=== PATIENT | male | born 1970 | race Caucasian/White ===

== ENCOUNTER 2016-12-10 13:36 | Emergency (ER) | payer OTHER ==
[~2016-12-10] VITALS: Ht 170.2 cm; Wt 99.8 kg
[~2016-12-10 13:36] MED LIST: ROBITUSSIN
[2016-12-10 13:56] VITALS: BP 121/78
--- NOTE | 2016-12-10 14:56 | NUR ---
45/M TO ED WITH C/O CHEST CONGESTION X2 DAYS WITH PRODUCTIVE COUGH. PT STATES HE HAS PAIN 5/10 IN CHEST. ALSO C/O SORE THROAT AND RUNNY NOSE. LUNGS CLEAR BILAT. HR EVEN AND REGULAR. AAOX4. VSS. NO SIGNS OF DISTRESS.
[2016-12-10 15:42] VITALS: BP 121/78
--- NOTE | 2016-12-10 15:43 | NUR ---
Patient discharged with v/s stable. Written and verbal after care instructions given and explained. Patient alert, oriented and verbalized understanding of instructions. Ambulatory with steady gait. All questions addressed prior to discharge. ID band removed. Patient advised to follow up with PMD. Rx of IBUPROFEN, PROMETHAZINE given. Patient educated on indication of medication including possible reaction and side effects. Opportunity to ask questions provided and answered.
== END 2016-12-10 15:43 | disposition home or self-care (01) ==
LOC: MED 13:36
DX: B34.9 Viral infection, unspecified (principal); J00 Acute nasopharyngitis [common cold]

== ENCOUNTER 2017-07-18 08:41 | Outpatient (CLI) | payer OTHER ==
[2017-07-18 09:46] LABS: BASOPHILS # (AUTO) 0.1 K/uL (0.00-0.22); EOSINOPHILS # (AUTO) 0.2 K/uL (0-0.4); EOSINOPHILS % (AUTO) 2.6 % (0.0-4.0); HEMATOCRIT 47.4 % (36-52); HEMOGLOBIN 15.4 g/dL (12.0-18.0); LYMPHOCYTES # (AUTO) 2.2 K/uL (2.0-11.5); LYMPHOCYTES % (AUTO) 30.2 % (20.5-51.1); MEAN CORPUSCULAR HEMOGLOBIN 29 pg (27-31); MEAN CORPUSCULAR HGB CONC 33 g/dL (33-37); MEAN CORPUSCULAR VOLUME 88 fL (80-94); MONOCYTES # (AUTO) 0.3 K/uL (0.8-1.0); MONOCYTES % (AUTO) 4.4 % (1.7-9.3); NEUTROPHILS # (AUTO) 4.5 K/uL (1.8-7.7); NEUTROPHILS % (AUTO) 61.8 % (42.2-75.2); PLATELET COUNT (AUTO) 276 K/uL (140-450); RED BLOOD CELL COUNT(AUTO) 5.37 MIL/uL (4.20-6.10); RED CELL DISTRIBUTION WIDTH 12.7 % (11.6-13.7); WHITE BLOOD COUNT (AUTO) 7.3 K/uL (4.8-10.8)
[2017-07-18 10:08] LABS: CHOL/HDL RATIO 4.6 (1-4.5)
[2017-07-18 10:15] LABS: ALBUMIN 3.9 g/dL (3.4-5.0); ANION GAP 7.3 (8-16); CARBON DIOXIDE 31.9 mmol/L (21-32); POTASSIUM 4.2 mmol/L (3.5-5.1); THYROID STIMULATING HORMONE 0.41 uIU/mL (0.34-3.74); TOTAL BILIRUBIN 1.2 mg/dL (0.0-1.0)
[2017-07-18 10:36] LABS: APPEARANCE,URINE HAZY (CLEAR); BILIRUBIN,URINE NEGATIVE (NEGATIVE); BLOOD, URINE NEGATIVE (NEGATIVE); COLOR,URINE ORANGE (YELLOW); LEUKOCYTE ESTERASE ,URINE NEGATIVE (NEGATIVE); NITRITE, URINE NEGATIVE (NEGATIVE); UGLUCOSE NEGATIVE (NEGATIVE)
== END 2017-07-18 20:41 | disposition home or self-care (01) ==
LOC: MRD 08:41
PROVIDERS: ATTEND Family Medicine Geriatric Medicine
DX: Z13.0 Encounter for screening for diseases of the blood and blood-forming organs and certain disorders involving the immune mechanism (principal); Z12.11 Encounter for screening for malignant neoplasm of colon; Z13.1 Encounter for screening for diabetes mellitus; Z13.228 Encounter for screening for other metabolic disorders; M77.31 Calcaneal spur, right foot; M25.512 Pain in left shoulder; M25.562 Pain in left knee; M25.572 Pain in left ankle and joints of left foot; M48.56XA Collapsed vertebra, not elsewhere classified, lumbar region, initial encounter for fracture; E78.5 Hyperlipidemia, unspecified
CPT/HCPCS: 36415; 72110; 73030; 73565; 73610; 73630; 80053; 81003; 83036; 84443; 85025; 87086

== ENCOUNTER 2018-01-09 11:14 | Emergency (ER) | payer OTHER ==
[~2018-01-09] VITALS: Ht 170.2 cm; Wt 99.3 kg
[2018-01-09 11:19] VITALS: BP 128/77
--- NOTE | 2018-01-09 11:21 | NUR ---
PT TAKEN TO BED 12.
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
[2018-01-09] MEDS ORDERED: KETOROLAC 60 MG/2 ML VIAL IM ONE (11:40)
[2018-01-09] MEDS ORDERED: HYDROcodone/APAP 5/325 MG 1 TAB TAB PO ONE (11:40)
[2018-01-09] MEDS ORDERED: DEXAMETHASONE 10 MG/ML VIAL IM ONE (11:40)
[2018-01-09 13:07] VITALS: BP 133/74
--- NOTE | 2018-01-09 13:08 | NUR ---
Patient discharged with v/s stable. Written and verbal after care instructions given and explained. Patient alert, oriented and verbalized understanding of instructions. Ambulatory with steady gait. All questions addressed prior to discharge. ID band removed. Patient advised to follow up with PMD. Rx of VOLATAREN given. Patient educated on indication of medication including possible reaction and side effects. Opportunity to ask questions provided and answered.
== END 2018-01-09 13:07 | disposition home or self-care (01) ==
LOC: MED 11:14
DX: S43.401A Unspecified sprain of right shoulder joint, initial encounter (principal); M75.01 Adhesive capsulitis of right shoulder; X58.XXXA Exposure to other specified factors, initial encounter; Y93.89 Activity, other specified; Y92.89 Other specified places as the place of occurrence of the external cause; Y99.8 Other external cause status
CPT/HCPCS: 73030; 96372; 99284; J1100; J1885

== ENCOUNTER 2018-02-04 13:49 | Emergency (ER) | payer OTHER ==
[~2018-02-04] VITALS: Ht 170.2 cm; Wt 82.6 kg
[2018-02-04 13:59] VITALS: BP 134/78
--- NOTE | 2018-02-04 14:08 | NUR ---
PT AMBULATED TO ER CHAIR C
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
[2018-02-04] MEDS ORDERED: IBUPROFEN 600 MG TAB PO ONE (14:15)
[2018-02-04 14:53] VITALS: BP 134/78
--- NOTE | 2018-02-04 14:53 | NUR ---
Patient discharged with v/s stable. Written and verbal after care instructions given and explained. Patient alert, oriented and verbalized understanding of instructions. Ambulatory with steady gait with crutches. All questions addressed prior to discharge. ID band removed. Patient advised to follow up with PMD. Rx of Ibuprofen given. Patient educated on indication of medication including possible reaction and side effects. Opportunity to ask questions provided and answered.
== END 2018-02-04 14:53 | disposition home or self-care (01) ==
LOC: MED 13:49
DX: S93.402A Sprain of unspecified ligament of left ankle, initial encounter (principal); Z79.899 Other long term (current) drug therapy; W19.XXXA Unspecified fall, initial encounter; Y93.89 Activity, other specified; Y92.89 Other specified places as the place of occurrence of the external cause; Y99.8 Other external cause status
CPT/HCPCS: 73610; 99284

== ENCOUNTER 2018-08-18 08:25 | Outpatient (CLI) | payer OTHER ==
[2018-08-18 08:55] LABS: BASOPHILS % (AUTO) 0.7 % (0.0-2.0); EOSINOPHILS # (AUTO) 0.1 K/uL (0-0.4); EOSINOPHILS % (AUTO) 1.4 % (0.0-4.0); HEMATOCRIT 44.7 % (36-52); LYMPHOCYTES # (AUTO) 1.9 K/uL (2.0-11.5); LYMPHOCYTES % (AUTO) 31.2 % (20.5-51.1); MEAN CORPUSCULAR HEMOGLOBIN 30 pg (27-31); MEAN CORPUSCULAR HGB CONC 34 g/dL (33-37); MEAN CORPUSCULAR VOLUME 88.1 fL (80-94); MONOCYTES # (AUTO) 0.3 K/uL (0.8-1.0); MONOCYTES % (AUTO) 4.8 % (1.7-9.3); NEUTROPHILS # (AUTO) 3.8 K/uL (1.8-7.7); NEUTROPHILS % (AUTO) 61.9 % (42.2-75.2); PLATELET COUNT (AUTO) 235 K/uL (140-450); RED BLOOD CELL COUNT(AUTO) 5.08 MIL/uL (4.20-6.10); RED CELL DISTRIBUTION WIDTH 13.6 % (11.6-13.7); WHITE BLOOD COUNT (AUTO) 6.2 K/uL (4.8-10.8)
[2018-08-18 09:09] LABS: APPEARANCE,URINE CLEAR (CLEAR); COLOR,URINE YELLOW (YELLOW)
[2018-08-18 09:10] LABS: BILIRUBIN,URINE NEGATIVE (NEGATIVE); BLOOD, URINE NEGATIVE (NEGATIVE); LEUKOCYTE ESTERASE ,URINE NEGATIVE (NEGATIVE); NITRITE, URINE NEGATIVE (NEGATIVE); RBC,URINE NONE SEEN /HPF (0-5); UGLUCOSE NEGATIVE (NEGATIVE); WBC,URINE 0-5 (RARE) /HPF (0-5)
[2018-08-18 09:41] LABS: ANION GAP 10.5 (8-16); CARBON DIOXIDE 26.5 mmol/L (21-32); CREATININE 0.9 mg/dL (0.7-1.3)
[2018-08-18 09:56] LABS: ALBUMIN 3.7 g/dL (3.4-5.0); CHOL/HDL RATIO 4.6 (1-4.5); FREE T4 (FREE THYROXINE) 0.8 ng/dL (0.76-1.46); THYROID STIMULATING HORMONE 0.79 uIU/mL (0.34-3.74); TOTAL BILIRUBIN 0.9 mg/dL (0.0-1.0)
== END 2018-08-18 21:22 | disposition home or self-care (01) ==
LOC: MLB 08:25
PROVIDERS: ATTEND Family Medicine Geriatric Medicine
DX: Z13.228 Encounter for screening for other metabolic disorders (principal); Z13.1 Encounter for screening for diabetes mellitus; Z12.5 Encounter for screening for malignant neoplasm of prostate; Z13.0 Encounter for screening for diseases of the blood and blood-forming organs and certain disorders involving the immune mechanism; E78.5 Hyperlipidemia, unspecified
CPT/HCPCS: 36415; 80053; 81001; 82306; 84154; 84439; 84443; 85025

== ENCOUNTER 2019-05-24 12:11 | Emergency (ER) | payer OTHER ==
[~2019-05-24] VITALS: Ht 172.7 cm; Wt 94.3 kg
[2019-05-24 12:17] VITALS: BP 102/66
--- NOTE | 2019-05-24 12:23 | NUR ---
Patient ambulated to bed 8 with family. RN evaluating patient at bedside.
--- NOTE | 2019-05-24 12:24 | NUR ---
Dr. Jensen evaluating patient at bedside.
[2019-05-24] MEDS ORDERED: IBUPROFEN 400 MG TAB PO ONE (12:30)
--- NOTE | 2019-05-24 12:31 | NUR ---
dental laboratory technology teacher at bedside.
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
[2019-05-24 12:56] VITALS: BP 102/66
--- NOTE | 2019-05-24 12:57 | NUR ---
Patient discharged with v/s stable. Written and verbal after care instructions given and explained. Patient alert, oriented and verbalized understanding of instructions. Ambulatory with steady gait. All questions addressed prior to discharge. ID band removed. Patient advised to follow up with PMD. Rx of Tramadol, Naprosyn, Cephalexin given. Patient educated on indication of medication including possible reaction and side effects. Opportunity to ask questions provided and answered.
== END 2019-05-24 12:57 | disposition home or self-care (01) ==
LOC: MED 12:11
DX: L03.012 Cellulitis of left finger (principal); Z79.899 Other long term (current) drug therapy
CPT/HCPCS: 29130; 73130; 99283; Q0092

== ENCOUNTER 2019-08-12 08:04 | Outpatient (CLI) | payer OTHER ==
[2019-08-12 08:44] LABS: BILIRUBIN,URINE NEGATIVE (NEGATIVE); BLOOD, URINE NEGATIVE (NEGATIVE); COLOR,URINE YELLOW (YELLOW); LEUKOCYTE ESTERASE ,URINE NEGATIVE (NEGATIVE); NITRITE, URINE NEGATIVE (NEGATIVE); UGLUCOSE NEGATIVE (NEGATIVE)
[2019-08-12 08:49] LABS: APPEARANCE,URINE SLIGHTLY HAZY (CLEAR); RBC,URINE 0 /HPF (0-5)
[2019-08-12 08:50] LABS: WBC,URINE 0-5 /HPF (0-5)
[2019-08-12 09:11] LABS: ALBUMIN 3.8 g/dL (3.4-5.0); ANION GAP 8.7 (8-16); CARBON DIOXIDE 32.1 mmol/L (21-32); CHOL/HDL RATIO 4.3 (1-4.5); CREATININE 0.9 mg/dL (0.7-1.3); FREE T4 (FREE THYROXINE) 0.82 ng/dL (0.76-1.46); POTASSIUM 3.8 mmol/L (3.5-5.1); THYROID STIMULATING HORMONE 1.08 uIU/mL (0.34-3.74); TOTAL BILIRUBIN 1.1 mg/dL (0.0-1.0)
[2019-08-12 10:30] LABS: BASOPHILS % (AUTO) 0.6 % (0.0-2.0); EOSINOPHILS # (AUTO) 0.1 K/uL (0-0.4); EOSINOPHILS % (AUTO) 1.1 % (0.0-4.0); HEMATOCRIT 46.1 % (36-52); HEMOGLOBIN 15.2 g/dL (12.0-18.0); LYMPHOCYTES # (AUTO) 1.5 K/uL (2.0-11.5); LYMPHOCYTES % (AUTO) 25.3 % (20.5-51.1); MEAN CORPUSCULAR HEMOGLOBIN 30 pg (27-31); MEAN CORPUSCULAR HGB CONC 33 g/dL (33-37); MEAN CORPUSCULAR VOLUME 90.7 fL (80-94); MONOCYTES # (AUTO) 0.3 K/uL (0.8-1.0); MONOCYTES % (AUTO) 4.4 % (1.7-9.3); NEUTROPHILS # (AUTO) 4.2 K/uL (1.8-7.7); NEUTROPHILS % (AUTO) 68.6 % (42.2-75.2); PLATELET COUNT (AUTO) 263 K/uL (140-450); RED BLOOD CELL COUNT(AUTO) 5.08 MIL/uL (4.20-6.10); RED CELL DISTRIBUTION WIDTH 13.9 % (11.6-13.7); WHITE BLOOD COUNT (AUTO) 6.1 K/uL (4.8-10.8)
== END 2019-08-12 22:03 | disposition home or self-care (01) ==
LOC: MLB 08:04
DX: Z12.5 Encounter for screening for malignant neoplasm of prostate (principal); Z13.1 Encounter for screening for diabetes mellitus; Z13.228 Encounter for screening for other metabolic disorders; Z13.0 Encounter for screening for diseases of the blood and blood-forming organs and certain disorders involving the immune mechanism; E78.5 Hyperlipidemia, unspecified; R79.89 Other specified abnormal findings of blood chemistry
CPT/HCPCS: 36415; 80053; 81001; 82306; 83036; 84154; 84439; 84443; 85025

== ENCOUNTER 2019-11-12 08:16 | Outpatient (CLI) | payer OTHER ==
[2019-11-12 09:28] LABS: BASOPHILS % (AUTO) 0.7 % (0.0-2.0); EOSINOPHILS # (AUTO) 0.1 K/uL (0-0.4); EOSINOPHILS % (AUTO) 1.5 % (0.0-4.0); HEMOGLOBIN 15.2 g/dL (12.0-18.0); LYMPHOCYTES # (AUTO) 1.9 K/uL (2.0-11.5); LYMPHOCYTES % (AUTO) 30.5 % (20.5-51.1); MEAN CORPUSCULAR HEMOGLOBIN 30 pg (27-31); MEAN CORPUSCULAR HGB CONC 34 g/dL (33-37); MEAN CORPUSCULAR VOLUME 89.3 fL (80-94); MONOCYTES # (AUTO) 0.3 K/uL (0.8-1.0); MONOCYTES % (AUTO) 5.1 % (1.7-9.3); NEUTROPHILS # (AUTO) 3.8 K/uL (1.8-7.7); NEUTROPHILS % (AUTO) 62.2 % (42.2-75.2); PLATELET COUNT (AUTO) 244 K/uL (140-450); RED BLOOD CELL COUNT(AUTO) 5.04 MIL/uL (4.20-6.10); RED CELL DISTRIBUTION WIDTH 13.5 % (11.6-13.7); WHITE BLOOD COUNT (AUTO) 6.1 K/uL (4.8-10.8)
[2019-11-13 06:49] LABS: PROSTATE SPEC AG TOTAL 3.2 ng/mL (0.0-4.0)
== END 2019-11-12 21:19 | disposition home or self-care (01) ==
LOC: MLB 08:16
DX: N50.3 Cyst of epididymis (principal); R53.83 Other fatigue
CPT/HCPCS: 36415; 76870; 84153; 84402; 84403; 85025; Q0092

== ENCOUNTER 2019-11-30 12:32 | Emergency (ER) | payer OTHER ==
[~2019-11-30] VITALS: Ht 167.6 cm; Wt 97.5 kg
[2019-11-30 13:17] VITALS: BP 125/78
--- NOTE | 2019-11-30 13:20 | NUR ---
WAIT AT LOBBY.
--- NOTE | 2019-11-30 13:45 | NUR ---
Patient ambulated to chair C. RN evaluating patient.
[2019-11-30] MEDS ORDERED: KETOROLAC 60 MG/2 ML VIAL IM ONE (13:55)
--- NOTE | 2019-11-30 14:37 | NUR ---
The patient was evaluated, treated and discharged by ANDREA Nicholas. No nursing care was rendered. The patient was discharged by ANDREA Nicholas.
== END 2019-11-30 14:37 | disposition home or self-care (01) ==
LOC: MED 12:32
DX: G89.29 Other chronic pain (principal); M25.511 Pain in right shoulder; M25.512 Pain in left shoulder
CPT/HCPCS: 96372; 99283; J1885

== ENCOUNTER 2019-12-04 10:58 | Outpatient (CLI) | payer OTHER | END 2019-12-04 20:52 | disposition home or self-care (01) | LOC: MLB 10:58 | PROVIDERS: ATTEND Urology | DX: N39.0 Urinary tract infection, site not specified (principal) | CPT/HCPCS: 87086 ==

== ENCOUNTER 2020-03-18 07:43 | Outpatient (CLI) | payer OTHER ==
[2020-03-18 08:46] LABS: CHOL/HDL RATIO 5.2 (1-4.5)
== END 2020-03-18 23:05 | disposition home or self-care (01) ==
LOC: MLB 07:43
DX: K80.20 Calculus of gallbladder without cholecystitis without obstruction (principal); K76.0 Fatty (change of) liver, not elsewhere classified; E78.5 Hyperlipidemia, unspecified; R79.89 Other specified abnormal findings of blood chemistry
CPT/HCPCS: 36415; 76700; 80061; 82306; Q0092

== ENCOUNTER 2020-03-28 12:34 | Outpatient (CLI) | payer OTHER | END 2020-03-28 20:41 | disposition home or self-care (01) | LOC: MRD 12:34 | DX: M25.512 Pain in left shoulder (principal) | CPT/HCPCS: 73030 ==

== ENCOUNTER 2020-06-20 08:42 | Outpatient (CLI) | payer OTHER ==
[2020-06-20 09:17] LABS: BASOPHILS % (AUTO) 0.6 % (0.0-2.0); EOSINOPHILS # (AUTO) 0.1 K/uL (0-0.4); EOSINOPHILS % (AUTO) 2.1 % (0.0-4.0); HEMATOCRIT 44.6 % (36-52); HEMOGLOBIN 15.2 g/dL (12.0-18.0); LYMPHOCYTES # (AUTO) 1.9 K/uL (2.0-11.5); LYMPHOCYTES % (AUTO) 33.7 % (20.5-51.1); MEAN CORPUSCULAR HEMOGLOBIN 31 pg (27-31); MEAN CORPUSCULAR HGB CONC 34 g/dL (33-37); MEAN CORPUSCULAR VOLUME 89.4 fL (80-94); MONOCYTES # (AUTO) 0.3 K/uL (0.8-1.0); MONOCYTES % (AUTO) 5.2 % (1.7-9.3); NEUTROPHILS # (AUTO) 3.4 K/uL (1.8-7.7); NEUTROPHILS % (AUTO) 58.4 % (42.2-75.2); PLATELET COUNT (AUTO) 234 K/uL (140-450); RED BLOOD CELL COUNT(AUTO) 4.99 MIL/uL (4.20-6.10); RED CELL DISTRIBUTION WIDTH 13.4 % (11.6-13.7); WHITE BLOOD COUNT (AUTO) 5.8 K/uL (4.8-10.8)
[2020-06-20 09:23] LABS: APPEARANCE,URINE CLEAR (CLEAR); BILIRUBIN,URINE NEGATIVE (NEGATIVE); BLOOD, URINE NEGATIVE (NEGATIVE); COLOR,URINE YELLOW (YELLOW); LEUKOCYTE ESTERASE ,URINE NEGATIVE (NEGATIVE); NITRITE, URINE NEGATIVE (NEGATIVE); UGLUCOSE NEGATIVE (NEGATIVE)
[2020-06-20 09:34] LABS: ALBUMIN 3.9 g/dL (3.4-5.0); ANION GAP 11.8 (8-16); CARBON DIOXIDE 26.1 mmol/L (21-32); CREATININE 0.9 mg/dL (0.6-1.3); POTASSIUM 3.9 mmol/L (3.5-5.1); TOTAL BILIRUBIN 0.7 mg/dL (0.0-1.0)
[2020-06-20 12:39] LABS: PROTHROMBIN TIME 9.5 secs (10.8-13.4)
== END 2020-06-20 19:29 | disposition home or self-care (01) ==
LOC: MLB 08:42
DX: Z01.818 Encounter for other preprocedural examination (principal); Z01.812 Encounter for preprocedural laboratory examination
CPT/HCPCS: 36415; 71046; 80053; 81003; 85025; 85610; 85651; 85730

== ENCOUNTER 2020-09-02 10:33 | Emergency (ER) | payer OTHER, SELFPAY ==
[~2020-09-02] VITALS: Ht 172.7 cm; Wt 97.5 kg
[2020-09-02 10:46] VITALS: BP 126/75
--- NOTE | 2020-09-02 10:50 | NUR ---
Patient placed in tent for covid precaution
--- NOTE | 2020-09-02 10:55 | NUR ---
49 y/o male c/o cough x 3 days. RR even and unlabored, no distress at this time. VSS medhx: denies
--- NOTE | 2020-09-02 11:15 | NUR ---
COVID SWAB DONE.
[2020-09-02 11:52] VITALS: BP 126/75
--- NOTE | 2020-09-02 11:53 | NUR ---
Patient discharged with v/s stable. Written and verbal after care instructions given and explained. Patient alert, oriented and verbalized understanding of instructions. Ambulatory with steady gait. All questions addressed prior to discharge. ID band removed. Patient advised to follow up with PMD. Rx of Tessalon Perles 100mg given. Patient educated on indication of medication including possible reaction and side effects. Opportunity to ask questions provided and answered.
== END 2020-09-02 11:53 | disposition home or self-care (01) ==
LOC: MED 10:33
DX: R06.02 Shortness of breath (principal); Z79.899 Other long term (current) drug therapy; Z20.828 Contact with and (suspected) exposure to other viral communicable diseases
CPT/HCPCS: 99283; U0003